=== PATIENT | female | born 1940 | race Caucasian/White ===

== ENCOUNTER 2021-02-15 09:26 | Outpatient (CLI) | payer MEDICARE | END 2021-02-15 09:27 | disposition home or self-care (01) | LOC: BICRAD 09:26 | PROVIDERS: ATTEND Internal Medicine Rheumatology | DX: M54.2 Cervicalgia (principal); M47.812 Spondylosis without myelopathy or radiculopathy, cervical region; M43.12 Spondylolisthesis, cervical region | CPT/HCPCS: 72052 ==